=== PATIENT | male | born 1940 | race Caucasian/White ===

== ENCOUNTER → 2019-08-04 08:50 | Outpatient (BNVA) | payer MEDICARE, SELFPAY | PROVIDERS: PCP Family Medicine; Referring Provider Family Medicine; Visit Provider Psychiatry & Neurology Neurology | DX: M79.2 Neuralgia and neuritis, unspecified (principal); G60.9 Hereditary and idiopathic neuropathy, unspecified; S24.109D Unspecified injury at unspecified level of thoracic spinal cord, subsequent encounter; W19.XXXD Unspecified fall, subsequent encounter; M48.061 Spinal stenosis, lumbar region without neurogenic claudication; G89.29 Other chronic pain; R73.03 Prediabetes; I10 Essential (primary) hypertension; N40.1 Benign prostatic hyperplasia with lower urinary tract symptoms; R35.1 Nocturia | CPT/HCPCS: 99205 ==

== ENCOUNTER → 2019-09-11 07:56 | Outpatient (BNVA) | payer MEDICARE, SELFPAY | PROVIDERS: PCP Family Medicine; Referring Provider Family Medicine; Visit Provider Psychiatry & Neurology Neurology | DX: S24.109A Unspecified injury at unspecified level of thoracic spinal cord, initial encounter (principal); L97.509 Non-pressure chronic ulcer of other part of unspecified foot with unspecified severity; W19.XXXA Unspecified fall, initial encounter; I10 Essential (primary) hypertension; M79.2 Neuralgia and neuritis, unspecified; M48.061 Spinal stenosis, lumbar region without neurogenic claudication | CPT/HCPCS: 99214 ==